=== PATIENT | female | born 1990 | race Caucasian/White ===

== ENCOUNTER → 2018-01-11 16:05 | Outpatient (CLI) | payer BC, SELFPAY ==
--- NOTE | 2018-01-11 16:06 | US_ITS ---
STUDY: SECOND AND THIRD TRIMESTER OBSTETRICAL ULTRASOUND REASON FOR EXAM: Female, 27 years old. Routine survey. LMP: August 23, 2017. TECHNIQUE: Transabdominal PRIOR ULTRASOUND: None. FINDINGS: There is a single intrauterine fetus. The fetus is in a cephalic presentation. There is demonstrated cardiac activity with a heart rate of 143 bpm. There is a normal amniotic fluid volume. The largest amniotic fluid pocket measures 7.8 cm x 3 cm. The placenta is anterior in location and is not low lying. There are Grade 1 placental changes. The cervix measures 3.8 cm in length. The adnexal regions are not visualized. BIOMETRY: BPD: 4.76 cm: 20 weeks, 3 days HC: 17.98 cm: 20 weeks, 3 days AC: 14.66 cm: 20 weeks, 0 days FL: 3.19 cm: 20 weeks, 0 days CI: 79% FL/BPD: 67% FL/HC: FL/AC: 22% HC/AC: 1.23 age by current US: 20 weeks, 2 days. JULIENNE by current US: May 29, 2018. Estimated weight: 326 grams, +/- 48 grams, 38 %. Age by LMP: 20 weeks, 1 days. JULIENNE by LMP: May 30, 2018. ANATOMY: Gender: Male Cranium: Normal lateral ventricles. Normal choroid plexus. Normal cerebellum. Normal cisterna magna. Normal face, nose and lips. Chest: Normal 4-chamber heart. Abdomen/Pelvis: Normal diaphragm. Normal stomach. Normal abdominal wall. Normal cord insertion. Normal 3 vessel cord. Normal kidneys. Normal bladder. Spine: Normal cervical spine. Normal thoracic spine. Normal lumbar spine. Normal sacrum. Extremities: Normal bilateral upper extremities. Normal bilateral lower extremities. US/OB Anatomy Scan IMPRESSION: Single live intrauterine gestation with a mean gestational age of 20 weeks and 2 days. Electronically Signed: Ramon Flores MD at 10:14 EDT Tel [phone], Service support ,
[2018-01-23 03:06] LABS: AFP MoM Value 0.95 (.); Comment Report (.); DIA MoM Value 0.59 (.); DIA Value-EIA 117.63 pg/mL (.); DSR (By Age) 850 (.); DSR (Second Trimester) 9437 (.); Gestational Age 20.1 WEEKS (.); Insulin Dep Diabetes No (.); Maternal Age At EDD 28.1 YEARS (.); hCG MoM 1.03 (.); hCG Value 24003 mIU/mL (.)
== END ==
PROVIDERS: Nurse Practitioner Women's Health; Family Provider Family Medicine; PCP Family Medicine; Visit Provider Obstetrics & Gynecology
DX: Z34.90 Encounter for supervision of normal pregnancy, unspecified, unspecified trimester (principal)
CPT/HCPCS: 76805; 82105; 82677; 84702; 86336

== ENCOUNTER → 2018-02-10 18:07 | Outpatient (CLI) | payer BC, SELFPAY | PROVIDERS: Visit Provider Nurse Practitioner Women's Health | DX: Z34.90 Encounter for supervision of normal pregnancy, unspecified, unspecified trimester (principal) | CPT/HCPCS: 87086 ==

== ENCOUNTER → 2018-03-07 11:47 | Outpatient (CLI) | payer BC, SELFPAY ==
[2018-03-07 12:32] LABS: Absolute Lymphocyte Count 2.73 X10^3/ul (0.83-4.51); Absolute Neutrophil Count 7.8 X10^3/uL (2.0-7.7); Basophil# 0.01 X10^3/uL; Basophil% 0.1 % (0-1); Eosinophil# 0.14 X10^3/uL; Eosinophils% 1.2 % (0-5); Hematocrit 36.1 % (37-47); Hemoglobin 12.2 g/dl (12.0-15.0); Lymphocyte # 2.73 X10^3/ul (4.0); Lymphocyte % 24.3 % (19-41); Mean Corp Hgb Conc 33.8 g/gl (32-36); Mean Corpuscular Hgb 29.1 pg (27.0-32.0); Mean Corpuscular Volume 86.2 fL (81-99); Mean Platelet Vol. 8.6 fl (6.2-12.0); Monocyte# 0.48 X10^3/uL; Monocyte% 4.3 % (0-10); Neutrophil # 7.82 X10^3/uL (2.7-7.7); Neutrophil % 69.7 % (47-70); Platelet Count 239 K/mm3 (150-450); RBC Distribution Width CV 13.5 % (11.6-14.6); RBC Distribution Width SD 42.4 fl (35.1-43.9); Red Blood Count 4.19 M/mm3 (4.2-5.4); White Blood Count 11.2 K/mm3 (4.4-11.0)
[2018-03-07 12:36] LABS: POSITIVE COUNT NO; POSITIVE DIFFERENTIAL NO; POSITIVE MORPHOLOGY NO
[2018-03-07 13:03] LABS: Glucose Challenge Gest 1H 50g 109 mg/dL (70-140)
== END ==
PROVIDERS: Family Provider Family Medicine; PCP Family Medicine; Visit Provider Nurse Practitioner Women's Health
DX: Z34.92 Encounter for supervision of normal pregnancy, unspecified, second trimester (principal); Z3A.24 24 weeks gestation of pregnancy
CPT/HCPCS: 36415; 82950; 85025

== ENCOUNTER → 2018-05-03 16:55 | Outpatient (CLI) | payer OTHER, SELFPAY ==
[2018-05-03 18:23] LABS: Protein, Urine (Random) 19.3 mg/dL (<11.9); Protein:Creat Ratio 191 mg/g CRE (0-200)
== END ==
PROVIDERS: Family Provider Family Medicine; PCP Family Medicine; Visit Provider Nurse Practitioner Women's Health
DX: O12.13 Gestational proteinuria, third trimester (principal); Z3A.00 Weeks of gestation of pregnancy not specified
CPT/HCPCS: 82570; 84156

== ENCOUNTER 2018-05-24 17:25 | Inpatient (IN) | payer OTHER, SELFPAY ==
[2018-05-24] MEDS: Lactated Ringers 1,000 ML 50 ML IV ×2 (17:00→22:47)
[2018-05-24 17:17] VITALS: BMI 26.6
[2018-05-24 17:31] LABS: Hematocrit 39.3 % (37-47); Mean Corp Hgb Conc 33.1 g/gl (32-36); Mean Corpuscular Hgb 28.1 pg (27.0-32.0); Mean Corpuscular Volume 85.1 fL (81-99); Mean Platelet Vol. 9.7 fl (6.2-12.0); Platelet Count 219 K/mm3 (150-450); RBC Distribution Width CV 13.7 % (11.6-14.6); RBC Distribution Width SD 42.2 fl (35.1-43.9); Red Blood Count 4.62 M/mm3 (4.2-5.4); White Blood Count 12.2 K/mm3 (4.4-11.0)
[2018-05-24 17:36] LABS: Scan Indicated on CBC? Y/N NO
[2018-05-24 17:40] LABS: Prothrombin Time (Protime)PT. 12.9 SECONDS (11.7-14.9)
[2018-05-24 17:41] LABS: AST(SGOT) 22 U/L (15-37); Alanine Aminotransfer ALT/SGPT 15 U/L (13-56); Creatinine, Serum 0.68 mg/dL (0.55-1.02); EST Glomerular Filtration Rate 109 mL/min (>60); Est Glom Filt Rate - Afr Amer 132 mL/min (>60); Estimated Creatinine Clearance 115.31 ml/min; Uric Acid 5.1 mg/dL (2.6-6.0)
[2018-05-24 17:45] LABS: Protein, Urine (Random) 31.3 mg/dL (<11.9); Protein:Creat Ratio 183 mg/g CRE (0-200)
[2018-05-24] MEDS: Oxytocin 30 units/NS 500 ml 30 UNITS/500 ML IV.SOLN IV (21:14)
[2018-05-24] MEDS: Acetaminophen 325 MG Tablet PO (21:50)
[2018-05-25] VITALS (8 sets, daily range): BP systolic 102–139; BP diastolic 69–84; PULSE 79–101; RESP 16–18; TEMP 36.6–36.7; O2SAT 96–98
[2018-05-25] MEDS: Mag Hydrox/Al Hydrox/Simeth 30 ML UDC PO (02:28)
[2018-05-25] MEDS: Lactated Ringers 1,000 ML 50 ML IV (04:42)
[2018-05-25] MEDS: Ondansetron 4 MG/2 ML Vial IV (06:14)
[2018-05-25] MEDS: Magnesium Sulfate 20 GM/500 ML BAG IV ×2 (08:30→17:36)
--- NOTE | 2018-05-25 11:39 | PCM.HP.OB ---
- Problem List (1) Preeclampsia Status: Acute (2) screening encounter Status: Acute Comment: Negative Quad (3) GBS (group B streptococcus) UTI complicating Status: Acute Qualifiers: Comment: pcn in labor (4) supervision normal Status: Acute Comment: PRR EDC 05/30/18 gender suprise coy History Date of Admission: 05/24/18 Final JULIENNE: 05/30/18 Gestational age: 39 Weeks and 2 Days History of this : This is a 28 year-old, , at 39 weeks gestational age presents with elevated bps and a low level headache Medical History: Medical History (Last Reviewed 05/24/18 @ 15:38 by Marybel Patrick) Abnormal Pap smear of cervix R87.619 mild Allergies No Known Allergies Allergy (Verified 05/24/18 15:39) Home Medications: Home Medications vitamin,calcium,nmqdegjx-mqry-culqk acid tablet 1 tab PO QDAY 10/11/17 ampicillin 250 mg capsule 250 mg PO ONCE 10/18/17 promethazine 12.5 mg tablet 12.5 mg PO Q6H PRN #60 tab 12/20/17 Smoking Status: Never smoker Alcohol: None Number of Fetus(es): 1 Heart Tracin moderate variability reactive no decels TOCO Analysis: irregular History Past Pregnancies: Past Pregnancies Delivery Date Name GA/Weeks Outcome Route Weight Infant Gender Labor Length Anesthesia Delivery Location Provider FOB Labs: Past Medical History (Last Reviewed 05/24/18 @ 15:38 by Marybel Patrick) Abnormal Pap smear of cervix (Acute) Expected Delivery Method: Spontaneous Vaginal Review of Systems Constitutional: Denies: Fever, Malaise Eyes: Denies: Blurred vision, Vision Change HEENT: Denies: Head Aches, Visual Changes Cardiovascular: Denies: Chest Pain, Palpitations Respiratory: Denies: Cough, Shortness of Breath, Wheezing Gastrointestinal: Denies: Abdominal Pain, Diarrhea, Nausea, Vomiting Genitourinary: Denies: Dysuria, Hematuria Musculoskeletal: Denies: Joint Pain, Muscle pain Skin: Denies: Lesions, Rash Neurological: Denies: Blurred vision, Focal weakness, Headaches Psychiatric: Denies: Anxiety, Depression Endocrine: Denies: Heat/ Cold Intolerance Hematologic/ Lymphatic: Denies: Easy Bruising, Easy Bleeding Physical Exam General: Alert, Cooperative, No apparent distress HEENT: Atraumatic, Normocephalic. Negative for: Thyromegaly, Lymphadenopathy Cardiovascular: Regular rate Lungs: Normal air movement Abdomen: Soft, Non Tender, Gravid Neurological: Deep Tendon Reflexes 2+/4 and Symmetrical, Neuro grossly intact. 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 Negative for: Vulvar lesions Estimated gestational size: Appropriate for gestational size Presentation: Cephalic Cervix Dilation (cm): 3 Assessment/Plan All Active Problems (Last Reviewed 05/24/18 @ 15:38 by Marybel Patrick) Preeclampsia (Acute) screening encounter (Acute) GBS (group B streptococcus) UTI complicating (Acute) supervision normal (Acute) This is a 28 year-old, , at 39 weeks gestational age presents IOL GHTN. plan pit iol and monitor bps.
--- NOTE | 2018-05-25 11:45 | HP.PCM_ITS ---
- Problem List (1) Preeclampsia Status: Acute (2) screening encounter Status: Acute Comment: Negative Quad (3) GBS (group B streptococcus) UTI complicating Status: Acute Qualifiers: Comment: pcn in labor (4) supervision normal Status: Acute Comment: PRR EDC 05/30/18 gender suprise coy History Date of Admission: 05/24/18 Final JULIENNE: 05/30/18 Gestational age: 39 Weeks and 2 Days History of this : This is a 28 year-old, , at 39 weeks gestational age presents with elevated bps and a low level headache Medical History: Medical History (Last Reviewed 05/24/18 @ 15:38 by Marybel Patrick) Abnormal Pap smear of cervix R87.619 mild Allergies No Known Allergies Allergy (Verified 05/24/18 15:39) Home Medications: Home Medications vitamin,calcium,pgcexgeo-yopv-mjqlr acid tablet 1 tab PO QDAY 10/11/17 ampicillin 250 mg capsule 250 mg PO ONCE 10/18/17 promethazine 12.5 mg tablet 12.5 mg PO Q6H PRN #60 tab 12/20/17 Smoking Status: Never smoker Alcohol: None Number of Fetus(es): 1 Heart Tracin moderate variability reactive no decels TOCO Analysis: irregular History Past Pregnancies: Past Pregnancies Delivery Date Name GA/Weeks Outcome Route Weight Infant Gender Labor Length Anesthesia Delivery Location Provider FOB Labs: Past Medical History (Last Reviewed 05/24/18 @ 15:38 by Marybel Patrick) Abnormal Pap smear of cervix (Acute) Expected Delivery Method: Spontaneous Vaginal Review of Systems Constitutional: Denies: Fever, Malaise Eyes: Denies: Blurred vision, Vision Change HEENT: Denies: Head Aches, Visual Changes Cardiovascular: Denies: Chest Pain, Palpitations Respiratory: Denies: Cough, Shortness of Breath, Wheezing Gastrointestinal: Denies: Abdominal Pain, Diarrhea, Nausea, Vomiting Genitourinary: Denies: Dysuria, Hematuria Musculoskeletal: Denies: Joint Pain, Muscle pain Skin: Denies: Lesions, Rash Neurological: Denies: Blurred vision, Focal weakness, Headaches Psychiatric: Denies: Anxiety, Depression Endocrine: Denies: Heat/ Cold Intolerance Hematologic/ Lymphatic: Denies: Easy Bruising, Easy Bleeding Physical Exam General: Alert, Cooperative, No apparent distress HEENT: Atraumatic, Normocephalic. Negative for: Thyromegaly, Lymphadenopathy Cardiovascular: Regular rate Lungs: Normal air movement Abdomen: Soft, Non Tender, Gravid Neurological: Deep Tendon Reflexes 2+/4 and Symmetrical, Neuro grossly intact. 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 Negative for: Vulvar lesions Estimated gestational size: Appropriate for gestational size Presentation: Cephalic Cervix Dilation (cm): 3 Assessment/Plan All Active Problems (Last Reviewed 05/24/18 @ 15:38 by Marybel Patrick) Preeclampsia (Acute) screening encounter (Acute) GBS (group B streptococcus) UTI complicating (Acute) supervision normal (Acute) This is a 28 year-old, , at 39 weeks gestational age presents IOL GHTN. plan pit iol and monitor bps.
--- NOTE | 2018-05-25 11:46 | PCM.PN.BLA ---
Progress Note patient developed severely elevated bps- recommend starting magnesium and dose of IV labetalol given, reassur FHTs, patient beginning pushing
[2018-05-25] MEDS: Naproxen 250 MG Tablet PO ×2 (13:30→21:30)
[2018-05-25] MEDS: Lactated Ringers 1,000 ML 15 ML IV (17:36)
[2018-05-25] MEDS: Acetaminophen 500 MG Tablet 1000 MG PO (18:01)
--- NOTE | 2018-05-25 22:57 | NURSING ---
At 2114, this RN reminded pt that hourly fluid intake to be 85cc/hr. Pt verbalizes understanding. Pt had orange juice plus 50cc of water.
--- NOTE | 2018-05-25 23:20 | NURSING ---
At 2019, this RN assisted pt with isaak care, checking lochia and fundus. Two clots, approximately 3 inches long, stringy and flat noted. While checking fundus, small gushes of lochia noted but fundus remains firm. This RN and Samantha RN assisted pt up to chair so housekeeping could clean room. Pt tolerated well but states she is very tired. At 2114, pt back to bed with standby assistance. Pt tolerated activity well.
[2018-05-26] VITALS (16 sets, daily range): BP systolic 108–134; BP diastolic 56–83; PULSE 64–96; RESP 16–20; TEMP 35.9–36.8; O2SAT 96–100
--- NOTE | 2018-05-26 01:38 | PCM.OB.VAG ---
- Problem List (1) Preeclampsia Status: Acute (2) screening encounter Status: Acute Comment: Negative Quad (3) GBS (group B streptococcus) UTI complicating Status: Acute Qualifiers: Comment: pcn in labor (4) supervision normal Status: Acute Comment: PRR EDC 05/30/18 gender suprise coy Vaginal Delivery Maternal Presentation: Active Labor 28 yo @ 39w2d IOL ghtn Method of Induction: Pitocin Amniotic Membrane Rupture Type: Spontaneous Amniotic Fluid Description: Clear Final JULIENNE: 05/30/18 Gestational age: 39 Weeks and 2 Days Date of Procedure: 05/25/18 Pre-Operative Diagnosis: iol ghtn Post-Operative Diagnosis: preeclampsia with severe features Surgery/ Procedure Performed: Spontaneous Vaginal Delivery Type of Anesthesia: Epidural Description of Procedure: patient initially had mildly elevated bps but as labor progressed even after her epidural she developed severely elevated bps and was started on magnesium and given a dose of IV labetalol. patient proceeded to complete dilation and Patient began pushing and delivered the head in the CHANG presentation. The head was delivered atraumatically and a loose nuchal cord ?1 was identified and easily reduced over the infant's head. The anterior and posterior shoulders delivered without complication followed by the rest of the infant and the infant was placed on the maternal abdomen. Delayed cord clamping was employed for approximately 60 seconds. Cord was clamped and cut and gentle traction was applied to the cord and the placenta delivered spontaneously immediately following it was noted to be intact with three-vessel cord. The perineum and vagina were inspected and noted to have no laceration. EBL was 100 cc. Patient and tolerated delivery well. Presentation: CHANG Placental Delivery Description: Spontaneous Placenta Disposition: [facility] Cord Vessel Description: 3 Vessels Cord Entanglement: Around neck x 1, loose Estimated Blood Loss: 100 Infant A gender: Male Episiotomy Description: None Laceration: None Medications given after delivery: IV Pitocin Complications: None
[2018-05-26] MEDS: Magnesium Sulfate 20 GM/500 ML BAG IV (05:12)
[2018-05-26] MEDS: Senna/Docusate Sodium 1 Tablet PO (08:14)
[2018-05-26] MEDS: Acetaminophen 500 MG Tablet 1000 MG PO (08:15)
[2018-05-26] MEDS: Prenatal Vits Tablet 1 TABLET PO (12:26)
[2018-05-26] MEDS: 0.9% Saline Lock 10 ML Syringe IV (12:26)
[2018-05-27 01:00] VITALS: BP 140/85; PULSE 85; RESP 16; TEMP 36.3
--- NOTE | 2018-05-27 08:09 | PCM.PN.OB ---
Patient Problems: Active and Suspected Problems (Last Reviewed 05/24/18 @ 15:38 by Marybel Patrick) Preeclampsia (Acute) Subjective: NO CP, SOB. BPs normal. - Physical Exam General: Alert, Oriented x3 Abdomen: Soft, Non Tender, - - FF below U Vital Signs Temp Pulse Resp BP Pulse Ox 97.3 F L 85 16 140/85 H 98 05/27/18 01:00 05/27/18 01:00 05/27/18 01:00 05/27/18 01:00 05/26/18 20:00 Oxygen Delivery Method Room Air Weight: 164 lb 10.965 oz Body Mass Index (BMI) 26.6 Intake and Output for Last 24 Hours 05/25/18 05/26/18 05/27/18 23:59 23:59 23:59 Intake Total 830 / 830 1440 / 1440 Output Total 3812 / 3812 3010 / 3010 Balance -2982 / -2982 -1570 / -1570 Medical Necessity - Tobacco Use Smoking Status: Never smoker Assessment/Plan All Active Problems (Last Reviewed 05/24/18 @ 15:38 by Marybel Patrick) Preeclampsia (Acute) screening encounter (Acute) GBS (group B streptococcus) UTI complicating (Acute) supervision normal (Acute) PPD #2 Routine care. Blood pressure normal without meds. Plans home today
--- NOTE | 2018-05-27 08:11 | PCM.DCVAG ---
Additional Instructions: If you experience any of the following, contact your healthcare provider. Bleeding that soaks a pad every hour for 2 hours Fever 100.4 or higher Unrelieved incision or abdominal pain Swelling, redness, discharge or bleeding from your incision or episiotomy site Your incision begins to separate Problems urinating (including inability to urinate or burning while urinating). Visual changes Severe headache Flu-like symptoms Pain or redness in one of both of your breasts Pain, warmth, tenderness or swelling in your legs, especially the calf area Frequent nausea and vomiting Symptoms of depression or anxiety If you experience any of the following, call 911 or go to the nearest Emergency Room. Chest pain Problems breathing Seizure activity Partial or complete paralysis of a body part, slurred speech, weakness or drooping of the face, or a sudden inability to walk or hold your balance Allergies/Adverse Reactions: Allergies No Known Allergies Allergy (Verified 05/24/18 15:39) Medications to take at Discharge vitamin,calcium,uhzqwrbf-bqqg-ztsiw acid tablet 1 tab PO QDAY 10/11/17 ampicillin 250 mg capsule 250 mg PO ONCE 10/18/17 promethazine 12.5 mg tablet 12.5 mg PO Q6H PRN #60 tab 12/20/17 Primary Care Physician: Ken Matias MD [Primary Care Provider] - Test Results: Test results from this visit will be discussed in further detail at your follow-up appointment, if applicable.
--- NOTE | 2018-05-27 08:12 | DCINST_ITS ---
Additional Instructions: If you experience any of the following, contact your healthcare provider. * Bleeding that soaks a pad every hour for 2 hours * Fever 100.4 or higher * Unrelieved incision or abdominal pain * Swelling, redness, discharge or bleeding from your incision or episiotomy site * Your incision begins to separate * Problems urinating (including inability to urinate or burning while urinating) . * Visual changes * Severe headache * Flu-like symptoms * Pain or redness in one of both of your breasts * Pain, warmth, tenderness or swelling in your legs, especially the calf area * Frequent nausea and vomiting * Symptoms of depression or anxiety If you experience any of the following, call 911 or go to the nearest Emergency Room. * Chest pain * Problems breathing * Seizure activity * Partial or complete paralysis of a body part, slurred speech, weakness or drooping of the face, or a sudden inability to walk or hold your balance Allergies/Adverse Reactions: Allergies No Known Allergies Allergy (Verified 05/24/18 15:39) Medications to take at Discharge vitamin,calcium,xmcscnvs-ybpk-adcag acid tablet 1 tab PO QDAY 10/11/17 ampicillin 250 mg capsule 250 mg PO ONCE 10/18/17 promethazine 12.5 mg tablet 12.5 mg PO Q6H PRN #60 tab 12/20/17 Primary Care Physician: Ken Matias MD [Primary Care Provider] - Test Results: Test results from this visit will be discussed in further detail at your follow- up appointment, if applicable.
[2018-05-27] MEDS: Senna/Docusate Sodium 1 Tablet PO (08:26)
[2018-05-27 08:34] VITALS: BP 130/79; PULSE 81; RESP 18; TEMP 36.2
[2018-05-27 11:58] VITALS: BP 130/79; PULSE 99; RESP 20; TEMP 36.2
--- NOTE | 2018-06-03 15:48 | NURSING ---
Follow up phone call complete, patient reports doing very well, no symptoms to report, pumping and bottle feeding, denies need for services and was very satisfied with her care
== END 2018-05-27 12:15 | disposition home or self-care (01) | DRG 775 ==
LOC: WPOUT 17:27
PROVIDERS: Admitting Provider Obstetrics & Gynecology; Family Provider Family Medicine; PCP Family Medicine; Visit Provider Obstetrics & Gynecology
DX: O14.14 Severe pre-eclampsia complicating childbirth (principal); B95.1 Streptococcus, group B, as the cause of diseases classified elsewhere; O69.81X0 Labor and delivery complicated by cord around neck, without compression, not applicable or unspecified; O23.40 Unspecified infection of urinary tract in pregnancy, unspecified trimester; Z3A.39 39 weeks gestation of pregnancy; Z37.0 Single live birth
CPT/HCPCS: 59025; 59050; 82565; 82570; 84156; 84450; 84460; 84550; 85027; 85610; 85730; 86850; 86900; 99218; J7120; A4216; G0378; J2405

== ENCOUNTER → 2018-07-06 08:27 | Outpatient (CLI) | payer OTHER, SELFPAY ==
[2018-07-13 12:14] LABS: HPV Reflexed? NOT INDICATED
== END ==
PROVIDERS: Family Provider Family Medicine; PCP Family Medicine; Visit Provider Obstetrics & Gynecology
DX: Z12.4 Encounter for screening for malignant neoplasm of cervix (principal)
CPT/HCPCS: 88175; G0145

== ENCOUNTER → 2019-03-30 11:48 | Outpatient (CLI) | payer OTHER, SELFPAY ==
[2018-07-06 14:05] VITALS: BMI 22.8
[2019-03-30 14:37] LABS: Absolute Lymphocyte Count 3.31 X10^3/ul (0.83-4.51); Basophil# 0.03 X10^3/uL; Basophil% 0.4 % (0-1); Eosinophils% 2.5 % (0-5); Hematocrit 43.6 % (37-47); Hemoglobin 14.7 g/dl (12.0-15.0); Lymphocyte # 3.31 X10^3/ul (4.0); Lymphocyte % 41.1 % (19-41); Mean Corp Hgb Conc 33.7 g/gl (32-36); Mean Corpuscular Hgb 28.2 pg (27.0-32.0); Mean Corpuscular Volume 83.7 fL (81-99); Mean Platelet Vol. 9.1 fl (6.2-12.0); Monocyte# 0.51 X10^3/uL; Monocyte% 6.3 % (0-10); Neutrophil # 3.99 X10^3/uL (2.7-7.7); Neutrophil % 49.5 % (47-70); Platelet Count 335 K/mm3 (150-450); RBC Distribution Width CV 12.9 % (11.6-14.6); RBC Distribution Width SD 39.4 fl (35.1-43.9); Red Blood Count 5.21 M/mm3 (4.2-5.4); White Blood Count 8.1 K/mm3 (4.4-11.0)
[2019-03-30 14:39] LABS: POSITIVE COUNT NO; POSITIVE DIFFERENTIAL NO; POSITIVE MORPHOLOGY NO
[2019-03-30 15:02] LABS: Internal QC Validated? YES +Cl - CLEAR BKGD; Monotest Negative (Negative)
== END ==
PROVIDERS: Family Provider Family Medicine; PCP Family Medicine; Referring Provider Family Medicine; Visit Provider Family Medicine
DX: R53.83 Other fatigue (principal)
CPT/HCPCS: 36415; 85025; 86308

== ENCOUNTER → 2019-09-21 13:11 | Outpatient (CLI) | payer OTHER, SELFPAY ==
[2019-09-21 10:52] VITALS: BMI 22.8
[2019-09-21 13:48] LABS: Protein:Creat Ratio 92 mg/g CRE (0-200)
[2019-09-21 16:07] LABS: Chlamydia Trachomatis by PCR Negative (Negative); Neisserai gonorrhoeae by PCR Negative (Negative); Probe Check PASS; Sample Adequacy Control PASS; Specimen Processing Control PASS
== END ==
PROVIDERS: Family Provider Family Medicine; PCP Family Medicine; Referring Provider Nurse Practitioner Women's Health; Visit Provider Nurse Practitioner Women's Health
DX: O09.299 Supervision of pregnancy with other poor reproductive or obstetric history, unspecified trimester (principal)
CPT/HCPCS: 82570; 84156; 87086; 87491; 87591

== ENCOUNTER → 2019-10-04 15:38 | Outpatient (CLI) | payer OTHER, SELFPAY ==
[2019-09-21 10:52] VITALS: BMI 22.8
[2019-10-04] MEDS: Dextrose 5%-Lactated Ringers 1,000 ML 999 ML IV (15:49)
[2019-10-04 15:50] VITALS: BP 112/71; PULSE 107; RESP 16; TEMP 36.9; O2SAT 99; BMI 24.2
[2019-10-04] MEDS: Ondansetron 4 MG/2 ML Vial IV (15:52)
[2019-10-04 16:56] VITALS: BP 134/79; PULSE 105; RESP 16
== END ==
PROVIDERS: Family Provider Family Medicine; PCP Family Medicine; Referring Provider Nurse Practitioner Women's Health; Visit Provider Nurse Practitioner Women's Health
DX: E86.0 Dehydration (principal)
CPT/HCPCS: 96361; 96374; 96375; A4216; J2405

== ENCOUNTER → 2019-10-11 11:11 | Outpatient (CLI) | payer OTHER, SELFPAY ==
[2019-10-11 10:36] VITALS: BMI 24.2
[2019-10-11 12:00] LABS: Absolute Lymphocyte Count 2.95 X10^3/uL (0.83-4.51); Absolute Neutrophil Count 4.5 X10^3/uL (2.0-7.7); Basophil# 0.02 X10^3/uL; Basophil% 0.2 % (0-1); Eosinophil# 0.12 X10^3/uL; Eosinophils% 1.5 % (0-5); Hematocrit 41.3 % (37-47); Hemoglobin 14.1 g/dL (12.0-15.0); Lymphocyte # 2.95 X10^3/ul (4.0); Lymphocyte % 36.3 % (19-41); Mean Corp Hgb Conc 34.1 g/dL (32-36); Mean Corpuscular Hgb 28.7 pg (27.0-32.0); Mean Corpuscular Volume 83.9 fL (81-99); Mean Platelet Vol. 8.6 fl (6.2-12.0); Monocyte# 0.48 X10^3/uL; Monocyte% 5.9 % (0-10); NRBC Flagged by Analyzer 0 % (0-5); Neutrophil % 55.5 % (47-70); Platelet Count 315 K/mm3 (150-450); RBC Distribution Width SD 36.1 fl (35.1-43.9); Red Blood Count 4.92 M/mm3 (4.2-5.4); White Blood Count 8.1 K/mm3 (4.4-11.0)
[2019-10-11 12:16] LABS: AST(SGOT) 16 U/L (15-37); Alanine Aminotransfer ALT/SGPT 26 U/L (13-56); Albumin, Serum 3.7 g/dL (3.2-5.0); Alkaline Phosphatase 52 U/L (45-117); Anion Gap 7 (5-15); BUN 4 mg/dL (7-18); BUN/Creat Ratio 6.2 RATIO (10-20); Chloride 106 mmol/L (98-107); Creatinine, Serum 0.65 mg/dL (0.55-1.02); EST Glomerular Filtration Rate 114 mL/min (>60); Est Glom Filt Rate - Afr Amer 138 mL/min (>60); Globulin 3.6 g/dL (2.2-4.2); Glucose 79 mg/dL (74-106); Potassium 3.8 mmol/L (3.5-5.1); Protein, Total 7.3 g/dL (6.4-8.2); Sodium Level 138 mmol/L (136-145)
[2019-10-11 13:03] LABS: HIV - WCH Non-Reactive (Nonreactive); Hepatitis B Surface Antigen Non-Reactive (Nonreactive); Rubella IgG 55.4 IU/mL
[2019-10-12 01:49] LABS: Rapid Plasmin Reagin (RPR) NONREACTIVE (NONREACTIVE)
== END ==
PROVIDERS: Nurse Practitioner Women's Health; Family Provider Family Medicine; PCP Family Medicine; Referring Provider Obstetrics & Gynecology; Visit Provider Obstetrics & Gynecology
DX: Z34.81 Encounter for supervision of other normal pregnancy, first trimester (principal)
CPT/HCPCS: 36415; 80053; 85025; 86592; 86703; 86762; 86850; 86900; 86901; 87340

== ENCOUNTER → 2019-11-07 | Outpatient (CLI) | payer OTHER, SELFPAY ==
[2019-10-11 10:36] VITALS: BMI 24.2
[2019-11-07] MEDS: Dextrose 5%-Lactated Ringers 1,000 ML 999 ML IV (14:47)
[2019-11-07] MEDS: Ondansetron 4 MG/2 ML Vial IV (14:48)
[2019-11-07 14:51] VITALS: BP 106/72; PULSE 75; RESP 16; TEMP 36.2; O2SAT 97; BMI 24.2
[2019-11-07 16:14] VITALS: BP 108/64; PULSE 68
== END | disposition home or self-care (01) ==
LOC: MEDOUTP 14:26
PROVIDERS: Family Provider Family Medicine; PCP Family Medicine; Referring Provider Nurse Practitioner Women's Health; Visit Provider Nurse Practitioner Women's Health
DX: E86.0 Dehydration (principal)
CPT/HCPCS: 96361; 96374; 96375; A4216; J2405

== ENCOUNTER → 2020-02-01 13:22 | Outpatient (CLI) | payer OTHER, SELFPAY ==
[2020-01-03 15:46] VITALS: BMI 24.2
[2020-02-01 13:47] LABS: Absolute Lymphocyte Count 2.94 X10^3/uL (0.83-4.51); Absolute Neutrophil Count 7.7 X10^3/uL (2.0-7.7); Basophil# 0.02 X10^3/uL; Basophil% 0.2 % (0-1); Eosinophils% 0.9 % (0-5); Hematocrit 37.6 % (37-47); Hemoglobin 12.3 g/dL (12.0-15.0); Lymphocyte # 2.94 X10^3/ul (4.0); Lymphocyte % 25.7 % (19-41); Mean Corp Hgb Conc 32.7 g/dL (32-36); Mean Corpuscular Hgb 28.1 pg (27.0-32.0); Mean Platelet Vol. 8.6 fl (6.2-12.0); Monocyte# 0.57 X10^3/uL; NRBC Flagged by Analyzer 0 % (0-5); Neutrophil # 7.73 X10^3/uL (2.7-7.7); Neutrophil % 67.6 % (47-70); Platelet Count 270 K/mm3 (150-450); RBC Distribution Width CV 12.7 % (11.6-14.6); RBC Distribution Width SD 39.8 fl (35.1-43.9); Red Blood Count 4.37 M/mm3 (4.2-5.4); White Blood Count 11.4 K/mm3 (4.4-11.0)
[2020-02-01 13:57] LABS: Glucose Challenge Gest 1H 50g 108 mg/dL (70-140)
== END ==
PROVIDERS: Nurse Practitioner Women's Health; PCP Family Medicine; Referring Provider Obstetrics & Gynecology; Visit Provider Obstetrics & Gynecology
DX: Z34.80 Encounter for supervision of other normal pregnancy, unspecified trimester (principal)
CPT/HCPCS: 36415; 82950; 85025

== ENCOUNTER → 2020-03-29 13:50 | Outpatient (CLI) | payer OTHER, SELFPAY ==
[2020-03-27 15:04] VITALS: BMI 24.2
--- NOTE | 2020-03-29 13:52 | US_ITS ---
STUDY: SECOND AND THIRD TRIMESTER OBSTETRICAL ULTRASOUND - LIMITED REASON FOR EXAM: Female, 30 years old small for dates LMP: July 21, 2019. PRIOR ULTRASOUND: Comparison is made with prior outside report. TECHNIQUE: Transabdominal TECHNICAL QUALITY: Adequate. FINDINGS: There is a single intrauterine fetus. The fetus is in a cephalic presentation. There is demonstrated cardiac activity with a heart rate of 165 bpm. There is a normal amniotic fluid volume. The largest amniotic fluid pocket measures 5.6 cm x 6.4 cm. The amniotic fluid index (HANNA) is 18 cm. The placenta is anterior in location and is not low lying. There are Grade 2 placental changes. The cervix was not able to be measured due to the bladder not being adequately distended. BIOMETRY: BPD: 8.6 cm: 34 weeks, 5 days HC: 31.44 cm: 35 weeks, 2 days AC: 29.75 cm: 33 weeks, 6 days FL: 6.65 cm: 34 weeks, 2 days Age by LMP: 36 weeks, 0 days. JULIENNE by LMP: April 26, 2020. age by prior US: 35 weeks, 3 days. JULIENNE by prior US: April 30, 2020. age by current US: 34 weeks, 4 days. JULIENNE by current US: May 06, 2020. Estimated weight: 2354 grams, +/- 344 grams, 10% percentile. US/OB Limited With Biometrics IMPRESSION: Single live intrauterine gestation with a mean gestational age of 35 weeks and 3 days. The measurements obtained today fall within the 10th percentile. Electronically Signed: Ramon Flores, at 8:41 EDT , Service support ,
== END ==
PROVIDERS: PCP Family Medicine; Referring Provider Nurse Practitioner Women's Health; Visit Provider Nurse Practitioner Women's Health
DX: O36.5930 Maternal care for other known or suspected poor fetal growth, third trimester, not applicable or unspecified (principal); Z3A.35 35 weeks gestation of pregnancy
CPT/HCPCS: 76816

== ENCOUNTER → 2020-04-03 16:29 | Outpatient (CLI) | payer OTHER, SELFPAY ==
[2020-04-03 15:01] VITALS: BMI 25.3
== END ==
PROVIDERS: PCP Family Medicine; Referring Provider Nurse Practitioner Women's Health; Visit Provider Nurse Practitioner Women's Health
DX: Z34.90 Encounter for supervision of normal pregnancy, unspecified, unspecified trimester (principal)
CPT/HCPCS: 87081

== ENCOUNTER → 2020-04-12 16:07 | Outpatient (CLI) | payer OTHER, SELFPAY ==
[2020-04-12 15:08] VITALS: BMI 24.2
[2020-04-12 16:52] LABS: ROM Internal Control Test YES-OK TO RESULT pt. (Internal QC); ROM Patient Test Negative (Negative)
== END ==
PROVIDERS: PCP Family Medicine; Visit Provider Obstetrics & Gynecology
DX: O26.899 Other specified pregnancy related conditions, unspecified trimester (principal); N89.8 Other specified noninflammatory disorders of vagina; Z3A.00 Weeks of gestation of pregnancy not specified
CPT/HCPCS: 84112

== ENCOUNTER 2020-04-29 09:42 | Inpatient (IN) | payer OTHER, SELFPAY ==
[2020-04-03 15:01] VITALS: BMI 25.3
[2020-04-26 15:03] VITALS: BMI 24.2
[2020-04-29] VITALS (41 sets, daily range): BP systolic 93–138; BP diastolic 56–90; PULSE 41–100; RESP 16; TEMP 36.2–36.7; O2SAT 92–100; BMI 26.5
[2020-04-29] MEDS: Lactated Ringers 1,000 ML 200 ML IV (09:50)
[2020-04-29] MEDS: Lactated Ringers 500 ML 999 ML IV (09:50)
[2020-04-29 10:28] LABS: Absolute Lymphocyte Count 2.89 X10^3/uL (0.83-4.51); Absolute Neutrophil Count 9.1 X10^3/uL (2.0-7.7); Basophil# 0.03 X10^3/uL; Basophil% 0.2 % (0-1); Eosinophils% 0.8 % (0-5); Hemoglobin 11.8 g/dL (12.0-15.0); Lymphocyte # 2.89 X10^3/ul (4.0); Lymphocyte % 22.2 % (19-41); Mean Corp Hgb Conc 31.9 g/dL (32-36); Mean Corpuscular Hgb 26.2 pg (27.0-32.0); Mean Corpuscular Volume 82.2 fL (81-99); Mean Platelet Vol. 8.9 fl (6.2-12.0); Monocyte# 0.87 X10^3/uL; Monocyte% 6.7 % (0-10); NRBC Flagged by Analyzer 0 % (0-5); Neutrophil # 9.05 X10^3/uL (2.7-7.7); Neutrophil % 69.5 % (47-70); Platelet Count 254 K/mm3 (150-450); RBC Distribution Width CV 14.7 % (11.6-14.6); RBC Distribution Width SD 43.2 fl (35.1-43.9)
[2020-04-29] MEDS: fentaNYL-bupivacaine (epidural) 100 ML BAG EPIDURAL (11:15)
[2020-04-29] MEDS: Oxytocin 30 units/NS 500 ml 30 UNITS/500 ML IV.SOLN 334 UNITS IV (16:03)
--- NOTE | 2020-04-29 16:09 | HP.PCM_ITS ---
- Problem List (1) Anxiety Status: Acute Comment: 01/31 Zoloft-stopped. (2) Nausea/vomiting in Status: Acute Comment: rose (3) Status: Acute Qualifiers: Weeks of gestation: 40 weeks Qualified Code(s): Z3A.40 - 40 weeks gestation of Comment: NIPT low risk. carrier and ntd declined. MFM growth US on 04/02/20 showed 30% growth (4) Supervision of other normal Status: Acute Comment: PRR JULIENNE 04/26/20 surprise PC Dash Spouse Landen (5) History of pre-eclampsia in prior , currently Status: Acute Comment: baseline labs nl, ASA at 14 wk History Date of Admission: 05/24/18 Final JULIENNE: 04/26/20 Gestational age: 40 Weeks and 3 Days History of this : This is a 30 year-old, at 40 weeks gestational age and is in active labor 5 cm dilated with regular contractions small vaginal bleeding likely related to labor no loss of fluid. She has had an uncomplicated . Medical History: Medical History (Last Reviewed 04/26/20 @ 14:58 by Kinsey Hanna) Abnormal Pap smear of cervix R87.619 mild Allergies No Known Allergies Allergy (Verified 04/29/20 10:25) Home Medications: Home Medications Pnv 102/Iron/Folate 1/Dss/Dha [Vitafol Fe+ Docusate Combo Pck] 1 ea PO 04/29/20 Smoking Status: Never smoker Alcohol: None Number of Fetus(es): 1 NST - FHR Rate Baby A Baseline: 130 Variability:: Moderate Accelerations:: 15 x 15 Decelerations:: None NST Reactive:: Yes FHR Category:: Category I Uterine Activity:: q 3-5 History Past Pregnancies: Past Pregnancies Pregancy History 2 Elective abortions Hx Para 1 Spontaneous abortions Hx # Term Pregnancies Ectopic pregnancies Hx # Pregnancies Multiple births # of living children 1 Past Pregnancies Del. Date Name GA/Weeks Outcome Route Bth Weight Gen Labor Lgth Anesthesia Del Locatn Provider FOB 05/25/18 Hardy 38 live - full term 6lbs 6oz Male epidural [facility] Delivery Date: 05/25/18 On 09/21/19 @ 09:54 Marybel Patrick Pre-eclampsia Labs: All Active Problems (Last Reviewed 04/26/20 @ 14:58 by Kinsey Hanna) Anxiety (Acute) Nausea/vomiting in (Acute) (Acute) Supervision of other normal (Acute) History of pre-eclampsia in prior , currently (Acute) SGA (small for gestational age), , affecting care of mother, antepartum (Resolved) Subchorionic hemorrhage in first trimester (Resolved) Expected Infant Delivery Method: Spontaneous Vaginal Review of Systems Constitutional: Denies: Fever, Malaise Eyes: Denies: Blurred vision, Vision Change HEENT: Denies: Head Aches, Visual Changes Cardiovascular: Denies: Chest Pain, Palpitations Respiratory: Denies: Cough, Shortness of Breath, Wheezing Gastrointestinal: Denies: Abdominal Pain, Diarrhea, Nausea, Vomiting Genitourinary: Denies: Dysuria, Hematuria Musculoskeletal: Denies: Joint Pain, Muscle pain Skin: Denies: Lesions, Rash Neurological: Denies: Blurred vision, Focal weakness, Headaches Psychiatric: Denies: Anxiety, Depression Endocrine: Denies: Heat/ Cold Intolerance Hematologic/ Lymphatic: Denies: Easy Bruising, Easy Bleeding Physical Exam Vitals: Vital Signs Temp Pulse BP Pulse Ox 97.2 F L 100 100/63 99 04/29/20 14:45 04/29/20 15:55 04/29/20 14:45 04/29/20 15:55 General: Alert, Cooperative, No apparent distress HEENT: Atraumatic, Normocephalic. Negative for: Thyromegaly, Lymphadenopathy Cardiovascular: Regular rate Lungs: Normal air movement Abdomen: Soft, Non Tender, Gravid Neurological: Deep Tendon Reflexes 2+/4 and Symmetrical, Neuro grossly intact. 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 Negative for: Vulvar lesions Estimated gestational size: Appropriate for gestational size Presentation: Cephalic Assessment/Plan All Active Problems (Last Reviewed 04/26/20 @ 14:58 by Kinsey Hanna) Anxiety (Acute) Nausea/vomiting in (Acute) (Acute) Supervision of other normal (Acute) History of pre-eclampsia in prior , currently (Acute) SGA (small for gestational age), , affecting care of mother, antepartum (Resolved) Subchorionic hemorrhage in first trimester (Resolved) This is a 30 year-old, at 40 weeks gestational age. Patient presents in active labor plan expectant management epidural and AROM clear fluid.
--- NOTE | 2020-04-29 16:12 | PCM.OPRPT ---
Problem List (1) Anxiety Status: Acute Comment: 01/31 Zoloft-stopped. (2) History of pre-eclampsia in prior , currently Status: Acute Comment: baseline labs nl, ASA at 14 wk (3) Nausea/vomiting in Status: Acute Comment: rose (4) Status: Acute Qualifiers: Weeks of gestation: 40 weeks Qualified Code(s): Z3A.40 - 40 weeks gestation of Comment: NIPT low risk. carrier and ntd declined. MFM growth US on 04/02/20 showed 30% growth (5) Supervision of other normal Status: Acute Comment: PRR JULIENNE 04/26/20 surprise PC Hardy Spouse Landen Report of Operation Date of Procedure: 04/29/20 Pre-Operative Diagnosis: ial Post-Operative Diagnosis: same Surgery/Procedure Performed:: ial Vaginal Delivery Maternal Presentation: Active Labor ial 40w Amniotic Membrane Rupture Type: Artificial Amniotic Fluid Description: Clear Final JULIENNE: 04/26/20 Gestational age: 40 Weeks and 3 Days Date of Procedure: 04/29/20 Pre-Operative Diagnosis: ial, variable decels Post-Operative Diagnosis: same Surgery/ Procedure Performed: Vacuum Assisted Vaginal Delivery Type of Anesthesia: Epidural Description of Procedure: Patient began pushing and delivered the head in the CHANG presentation. Patient been pushing under an hour and still had an estimated 30 to 45 minutes of additional pushing however developed recurrent heart rate variables that were severe down into the 50s and therefore the decision for an operative vaginal delivery with a vacuum was made. Head was in the +3 station vacuum applied and with 1 pull with no pop offs with 1 contraction the head was delivered atraumatically. The head was delivered atraumatically and a tight nuchal cord x2 was noted and unable to be reduced and therefore after the anterior shoulder was delivered to the cord was clamped and cut on the perineum and the rest of the delivered without complication.. Delayed cord clamping was employed for approximately 60 seconds. Cord was clamped and cut and gentle traction was applied to the cord and the placenta delivered spontaneously immediately following it was noted to be intact with three-vessel cord. The perineum and vagina were inspected and noted to have no laceration. EBL was 100 cc. Patient and infant tolerated delivery well. Presentation: CHANG Placental Delivery Description: Spontaneous Placenta Disposition: [facility] Cord Vessel Description: 3 Vessels Cord Entanglement: Around neck x 2, tight Estimated Blood Loss: 100 A gender: Male Episiotomy Description: None Laceration: None Medications given after delivery: IV Pitocin Complications: None Multi Select Codes - Urinary/Genital Urinary/Genital CPT Codes: 82167 Vaginal Delivery [facility]
[2020-04-30] VITALS (10 sets, daily range): BP systolic 101–120; BP diastolic 61–80; PULSE 64–85; RESP 16; TEMP 36.2–37
[2020-04-30] MEDS: Naproxen 250 MG Tablet 500 MG PO ×2 (01:23→09:18)
--- NOTE | 2020-04-30 04:40 | NURSING ---
using Ice packs to isaak area.
--- NOTE | 2020-04-30 08:42 | PN.OBGYN_ITS ---
Subjective: Doing well, no complaints.Pain controlled. Denies CP, SOB, N,V. Ambulating well, tolerating po. Lochia moderate, going well. - Physical Exam Vitals/I&O's: Vital Signs Temp Pulse Resp BP Pulse Ox 97.6 F L 72 16 111/67 99 04/30/20 08:16 04/30/20 08:16 04/30/20 08:16 04/30/20 08:16 04/29/20 15:55 Oxygen Delivery Method Room Air Weight: 159 lb 6.307 oz Body Mass Index (BMI) 26.5 Intake and Output for Last 24 Hours 04/28/20 04/29/20 04/30/20 23:59 23:59 23:59 Intake Total 1999 / 1999 Output Total 550 / 550 800 / 800 Balance 1450 / 1450 -800 / -800 General: Alert, Oriented x3 Abdomen: Soft, Non Tender, - - FF below U Laboratory Results 04/29/20 09:50: WBC 13.0 H, RBC 4.50, Hgb 11.8 L, Hct 37.0, MCV 82.2, MCH 26.2 L , MCHC 31.9 L, RDW Std Deviation 43.2, RDW Coeff of Kirstie 14.7 H, Plt Count 254, MPV 8.9, Immature Gran % (Auto) 0.600, Neut % (Auto) 69.5, Lymph % (Auto) 22.2, [place] % (Auto) 6.7, Eos % (Auto) 0.8, Baso % (Auto) 0.2, Absolute Neuts (auto) 9.1 H, Absolute Lymphs (auto) 2.89, Nucleated RBC % 0 04/29/20 09:50: Blood Type O POSITIVE, Antibody Screen NEGATIVE Current Medications Acetaminophen (Tylenol) 1,000 mg PO Q8H PRN PRN PRN Reason: Pain Score 1-3/10 Bisacodyl (Dulcolax) 10 mg RECTAL UD PRN PRN Reason: If no BM Dibucaine (Dibucaine) 1 applic TOPICAL TID PRN PRN; Protocol PRN Reason: Discomfort Hydrocortisone (Hytone) 1 applic TOPICAL TID PRN PRN; Protocol PRN Reason: Discomfort Methylergonovine Maleate (Methergine) 0.2 mg IM X1 PRN PRN Reason: Excess bleeding/uterine atony Naproxen (Naprosyn) 500 mg PO Q8H PRN PRN PRN Reason: Pain Score 1-3/10 Last Admin: 04/30/20 01:23 Dose: 500 mg Documented by: Ondansetron HCl (Zofran) 4 mg IV Q4H PRN PRN PRN Reason: Nausea Oxycodone HCl (Oxyir) 5 - 10 mg PO Q4H PRN PRN PRN Reason: Pain Score 4-10/10 Senna/Docusate Sodium (Senokot-S, Deana-Colace) 1 - 2 tablet PO DAILY PRN PRN PRN Reason: Constipation Simethicone (Mylicon) 80 mg PO PCHS PRN PRN Reason: Indigestion/Stomach pain Sodium Chloride () 5 - 15 ml IV UD PRN PRN Reason: SALINE FLUSH Medical Necessity - Tobacco Use Smoking Status: Never smoker Assessment/Plan All Active Problems (Last Reviewed 04/26/20 @ 14:58 by Kinsey Hanna) Anxiety (Acute) Nausea/vomiting in (Acute) (Acute) Supervision of other normal (Acute) History of pre-eclampsia in prior , currently (Acute) SGA (small for gestational age), , affecting care of mother, antepartum (Resolved) Subchorionic hemorrhage in first trimester (Resolved) s/p PPD # 1. routine post delivery care 2. breast feeding- support given 3. rh positive 4. rubella immune 5. home today
--- NOTE | 2020-04-30 08:44 | DCINST_ITS ---
Additional Instructions: If you experience any of the following, contact your healthcare provider. * Bleeding that soaks a pad every hour for 2 hours * Fever 100.4 or higher * Unrelieved incision or abdominal pain * Swelling, redness, discharge or bleeding from your incision or episiotomy site * Your incision begins to separate * Problems urinating (including inability to urinate or burning while urinating). * Visual changes * Severe headache * Flu-like symptoms * Pain or redness in one of both of your breasts * Pain, warmth, tenderness or swelling in your legs, especially the calf area * Frequent nausea and vomiting * Symptoms of depression or anxiety If you experience any of the following, call 911 or go to the nearest Emergency Room. * Chest pain * Problems breathing * Seizure activity * Partial or complete paralysis of a body part, slurred speech, weakness or drooping of the face, or a sudden inability to walk or hold your balance Allergies/Adverse Reactions: Allergies No Known Allergies Allergy (Verified 04/29/20 10:25) Medications to take at Discharge Pnv 102/Iron/Folate 1/Dss/Dha [Vitafol Fe+ Docusate Combo Pck] 1 ea PO 04/29/20 Primary Care Physician: Ken Linares MD [Primary Care Provider] - Test Results: Test results from this visit will be discussed in further detail at your follow- up appointment, if applicable.
--- NOTE | 2020-04-30 08:44 | PCM.DCVAG ---
Additional Instructions: If you experience any of the following, contact your healthcare provider. Bleeding that soaks a pad every hour for 2 hours Fever 100.4 or higher Unrelieved incision or abdominal pain Swelling, redness, discharge or bleeding from your incision or episiotomy site Your incision begins to separate Problems urinating (including inability to urinate or burning while urinating). Visual changes Severe headache Flu-like symptoms Pain or redness in one of both of your breasts Pain, warmth, tenderness or swelling in your legs, especially the calf area Frequent nausea and vomiting Symptoms of depression or anxiety If you experience any of the following, call 911 or go to the nearest Emergency Room. Chest pain Problems breathing Seizure activity Partial or complete paralysis of a body part, slurred speech, weakness or drooping of the face, or a sudden inability to walk or hold your balance Allergies/Adverse Reactions: Allergies No Known Allergies Allergy (Verified 04/29/20 10:25) Medications to take at Discharge Pnv 102/Iron/Folate 1/Dss/Dha [Vitafol Fe+ Docusate Combo Pck] 1 ea PO 04/29/20 Primary Care Physician: Ken Linares MD [Primary Care Provider] - Test Results: Test results from this visit will be discussed in further detail at your follow-up appointment, if applicable.
[2020-04-30] MEDS: Senna/Docusate Sodium 1 Tablet PO (09:18)
== END 2020-04-30 18:45 | disposition home or self-care (01) | DRG 807 ==
LOC: OBT 09:42 → WP 09:42
PROVIDERS: Admitting Provider Obstetrics & Gynecology; PCP Family Medicine; Referring Provider Obstetrics & Gynecology; Visit Provider Obstetrics & Gynecology
DX: O76 Abnormality in fetal heart rate and rhythm complicating labor and delivery (principal); Z37.0 Single live birth; Z87.59 Personal history of other complications of pregnancy, childbirth and the puerperium; O69.1XX0 Labor and delivery complicated by cord around neck, with compression, not applicable or unspecified; Z3A.40 40 weeks gestation of pregnancy
CPT/HCPCS: 59025; 59050; 85025; 86850; 86900; 86901; 99218; J7120; G0378

== ENCOUNTER → 2021-06-16 17:07 | Outpatient (CLI) | payer OTHER, SELFPAY ==
[2021-06-16 15:48] VITALS: BMI 23.5
[2021-06-20 10:52] LABS: HPV APTIMA, High Risk Negative (Negative)
== END ==
PROVIDERS: PCP Family Medicine; Referring Provider Obstetrics & Gynecology; Visit Provider Obstetrics & Gynecology
DX: Z12.4 Encounter for screening for malignant neoplasm of cervix (principal)
CPT/HCPCS: 87624; 88175; G0145

== ENCOUNTER → 2021-07-17 11:37 | Outpatient (CLI) | payer OTHER, SELFPAY ==
[2021-07-17 16:09] LABS: Thyroid Stim Hormone (TSH) 2.25 uIU/mL (0.358-3.74)
== END ==
PROVIDERS: PCP Family Medicine; Referring Provider Family Medicine; Visit Provider Family Medicine
DX: F32.9 Major depressive disorder, single episode, unspecified (principal)
CPT/HCPCS: 36415; 84443

== ENCOUNTER → 2024-08-11 | Outpatient (CLI) | payer BC, SELFPAY ==
--- NOTE | 2024-08-11 16:36 | US_ITS ---
EXAM: US PELVIS TRANSABDOMINAL AND TRANSVAGINAL, COMPLETE CLINICAL INDICATION: pelvic pain TECHNIQUE: Transabdominal and transvaginal pelvic ultrasound was performed with grayscale and color Doppler imaging. Transvaginal imaging was used for better evaluation of the endometrium and adnexa. COMPARISON: No relevant prior studies available. FINDINGS: UTERUS/CERVIX: Unremarkable. Anteverted. There is no uterine mass. Normal 8mm endometrial stripe thickness on transabdominal exam. Trilaminar appearance and 8 mm thickness at the fundus on transvaginal exam. The uterus is 8.1 cm x 4.2 cm x 5 cm. RIGHT OVARY: 3.2 cm x 2.5 cm x 2.7 cm. Tiny peripheral follicles and one dominant simple follicle of roughly 1.4 cm. Non-enlarged, normal echogenicity. Blood flow is present in the right ovary. LEFT OVARY: Unremarkable. 2.7 cm x 1.8 cm x 1.9 cm with at least a few tiny peripheral follicles. Non-enlarged, normal echogenicity. Blood flow is present in the left ovary. FREE FLUID: None. BLADDER: Unremarkable as visualized. Wall is normal thickness for degree of distention. 6.4 cm x 3.0 cm x 7.9 cm. OTHER: Mildly prominent vessel in the left adnexa, patent and 1.1 cm diameter. Nonspecific. US/Pelvic w/ Transvaginal IMPRESSION: Nonspecific findings. Small right ovarian simple dominant follicle does not require follow-up. Electronically Signed: Afia Sidhu MD at 2:13 EDT ,
== END | disposition home or self-care (01) ==
PROVIDERS: PCP Family Medicine; Referring Provider Nurse Practitioner Women's Health; Visit Provider Nurse Practitioner Women's Health
DX: R10.2 Pelvic and perineal pain (principal)
CPT/HCPCS: 76830; 76856

== ENCOUNTER → 2024-08-14 | Outpatient (CLI) | payer BC, SELFPAY ==
[2024-08-14 15:36] LABS: T4 Free Direct 0.77 ng/dL (0.76-1.46)
[2024-08-14 15:43] LABS: Hemoglobin A1c 4.7 % (3.8-5.6)
[2024-08-19 16:09] LABS: Testosterone Free 1.7 pg/mL (0.0-4.2); Thyroid Peroxidase AB < 9 IU/mL (0-34)
== END | disposition home or self-care (01) ==
LOC: WOBLAB 13:02
PROVIDERS: PCP Family Medicine; Referring Provider Nurse Practitioner Women's Health; Visit Provider Nurse Practitioner Women's Health
DX: Z13.29 Encounter for screening for other suspected endocrine disorder (principal); R63.4 Abnormal weight loss; L68.0 Hirsutism; Z13.21 Encounter for screening for nutritional disorder
CPT/HCPCS: 36415; 82306; 82627; 83036; 84402; 84439; 84443; 86376; 82626